=== PATIENT | female | born 1995 | race American Indian/Alaskan Native ===

== ENCOUNTER 2018-02-02 11:05 | Emergency (ER) | payer OTHER ==
[~2018-02-02] VITALS: Ht 157.5 cm; Wt 81.7 kg
[~2018-02-02 11:05] MED LIST: CIPRO500 MG PO
[2018-02-02] MEDS ORDERED: PRILOSEC OTC20 MG PO (12:37)
[2018-02-02] MEDS ORDERED: ZOFRAN ODT4 MG PO (12:37)
[2018-02-02] MEDS ORDERED: CRUTCH1 EACH (12:55)
== END 2018-02-02 13:25 | disposition home or self-care (01) ==
LOC: ED 11:05
DX: S82.891A Other fracture of right lower leg, initial encounter for closed fracture (principal); K29.70 Gastritis, unspecified, without bleeding; F17.200 Nicotine dependence, unspecified, uncomplicated; X50.9XXA Other and unspecified overexertion or strenuous movements or postures, initial encounter
CPT/HCPCS: 73610; 80053; 80176; 83690; 84703; 85025; 96374; 96375; 99284; G0480; J2405; J7030

== ENCOUNTER 2018-11-20 07:45 | Inpatient (IN) | payer OTHER ==
[~2018-11-20] VITALS: Ht 157.5 cm; Wt 93.0 kg
[~2018-11-20 07:45] MED LIST changes: +CRUTCH1 EACH; +PRILOSEC OTC20 MG PO; +ZOFRAN ODT4 MG PO
--- NOTE | 2018-11-20 19:03 | PR ---
[facility] [address] [facility] [place], [place] [address] Signed Progress Notes IP Datetime Report Generated by EMILIANO: 11/20/2018 19:03 PROGRESS NOTES: [id number] Impression: Reactive non-stress test; Slow Progression of Labor Procedures: Intrauterine Pressure Catheter; Sterile Vag Exam Plan: Continue present management Informed Consent Obtain: Vaginal Delivery; Risks, Benefits and Alternatives Discussed VITAL SIGNS: [id number] Vital Signs: Reviewed; Within Normal Limits EXAM: [id number] Dilatation: 4.0 Effacement: 90 Station: -2 Uterine Contractions: q 1 to 3 min MEMBRANES: [id number] Membrane Status: Intact Comments: No progress despite pit augment. Suspect contractions inadequate. Will place IUPC and increase pitocin as needed. Fetus A: [id number] FHR Baseline: 145 Variability: Moderate 6-25bpm Accelerations: 15X15 Decelerations: None FHR Category: Category I Presentation: Vertex Comments on Fetus A: No evidence of metabolic acidosis. Fetus B: [id number] Signing Physician: Bonnie Drew MD Copies: ~ *Electronically Signed* 11/20/18 190 BONNIE DREW MD PATIENT NAME: KAYLA WELLS PROGRESS NOTE DATE OF : 95 PHYSICIAN: BONNIE DREW MD RPT #: [id number] REPORT IS CONFIDENTIAL AND NOT TO BE RELEASED WITHOUT AUTHORIZATION
--- NOTE | 2018-11-22 10:19 | PR ---
[facility] [address] [facility] [place], [place] [address] Signed PP Progress Notes Datetime Report Generated by CPChante: 11/22/2018 10:19 SUBJECTIVE: [id number] Pain: Within normal limits Vital Signs: [id number] Vital Signs: Reviewed; Within Normal Limits EXAM: [id number] Cardiovascular: Not Done Respiratory: Not Done Abdomen/Uterus: Abnormal Lochia: Normal Vulva/Perineum: Not Done Breasts: Not Done CVA Tenderness: Not Done Extremities: Normal Incision: Not Applicable Progress: Normal Exam Comments: Fundus firm, NT @ U H/H 9.3/29.1, WBC 17.3, plat 192k IMPRESSION/PLAN/PROCEDURES: [id number] Impression: Normal progression Plan: Continue present management Progress Notes: Doing well. Will continue current regimen. Signing Physician: Dara Drew MD Copies: ~ *Electronically Signed* 11/22/18 1019 DARA DREW MD PATIENT NAME: KAYLA WELLS PROGRESS NOTE DATE OF : 95 PHYSICIAN: DARA DREW MD RPT #: [id number] REPORT IS CONFIDENTIAL AND NOT TO BE RELEASED WITHOUT AUTHORIZATION
--- NOTE | 2018-11-23 09:23 | PR ---
[facility] [address] [facility] [place], [place] [address] Signed PP Progress Notes Datetime Report Generated by CPN: 11/23/2018 09:22 SUBJECTIVE: [id number] Pain: Within normal limits Vital Signs: [id number] Vital Signs: Reviewed; Within Normal Limits EXAM: [id number] Cardiovascular: Not Done Respiratory: Not Done Abdomen/Uterus: Abnormal Lochia: Normal Vulva/Perineum: Not Done Breasts: Not Done CVA Tenderness: Not Done Extremities: Normal Incision: Not Applicable Progress: Normal Exam Comments: Fundus firm, NT @ U. IMPRESSION/PLAN/PROCEDURES: [id number] Impression: Normal progression Plan: Discharge Procedures: None Progress Notes: Doing well. She is ready for D/C. Signing Physician: Bonnie Drew MD Copies: ~ *Electronically Signed* 11/23/18921 BONNIE DREW MD PATIENT NAME: KAYLA WELLS PROGRESS NOTE DATE OF : 95 PHYSICIAN: BONNIE DREW MD RPT #: [id number] REPORT IS CONFIDENTIAL AND NOT TO BE RELEASED WITHOUT AUTHORIZATION
== END 2018-11-23 13:00 | disposition home or self-care (01) | DRG 807 ==
LOC: FBCO 07:45 → FBC 07:45 → FBCO 07:45 → FBC 08:14 → EDSTATUS 11-21 08:30 → FBC 11-21 15:45
PROVIDERS: ADMIT Obstetrics & Gynecology
PROC: 10907ZC Drainage of Amniotic Fluid, Therapeutic from Products of Conception, Via Natural or Artificial Opening (ICD-10-PCS; 2018-11-20)
PROC: 10H07YZ Insertion of Other Device into Products of Conception, Via Natural or Artificial Opening (ICD-10-PCS; 2018-11-20)
PROC: 00HU33Z Insertion of Infusion Device into Spinal Canal, Percutaneous Approach (ICD-10-PCS; 2018-11-20)
PROC: 3E0R3BZ Introduction of Anesthetic Agent into Spinal Canal, Percutaneous Approach (ICD-10-PCS; 2018-11-20)
PROC: 10E0XZZ Delivery of Products of Conception, External Approach (ICD-10-PCS; principal; 2018-11-21)
PROC: 0UQGXZZ Repair Vagina, External Approach (ICD-10-PCS; 2018-11-21)
PROC: 0UQMXZZ Repair Vulva, External Approach (ICD-10-PCS; 2018-11-21)
DX: O99.824 Streptococcus B carrier state complicating childbirth (principal); Z37.0 Single live birth; Z3A.37 37 weeks gestation of pregnancy; O63.1 Prolonged second stage (of labor); O99.214 Obesity complicating childbirth; E66.9 Obesity, unspecified; O62.2 Other uterine inertia; O71.82 Other specified trauma to perineum and vulva; O71.4 Obstetric high vaginal laceration alone; O99.324 Drug use complicating childbirth; F12.90 Cannabis use, unspecified, uncomplicated; Z87.891 Personal history of nicotine dependence
CPT/HCPCS: 01960; 36415; 59025; 85027; 99213; J2210; J2405; J2540; J2590; J2795; J7060; J7120

== ENCOUNTER 2020-05-02 07:28 | Inpatient (IN) | payer OTHER ==
[~2020-05-02] VITALS: Ht 157.5 cm; Wt 95.0 kg
--- NOTE | 2020-05-02 12:38 | PR ---
[facility] [address] [facility] [place], [place] [address] Signed Progress Notes IP Datetime Report Generated by CPChante: 05/02/2020 12:38 PROGRESS NOTES: [id number] Impression: Slow Progression of Labor Procedures: Artificial ROM; Sterile Vag Exam Plan: Continue present management Informed Consent Obtain: Vaginal Delivery; Risks, Benefits and Alternatives Discussed VITAL SIGNS: [id number] Vital Signs: Reviewed; Within Normal Limits EXAM: [id number] Dilatation: 7.0 Effacement: 95 Station: -2 Uterine Contractions: q 2 to 4 min MEMBRANES: [id number] Membrane Status: Intact ROM Note: AROM with small amount of clear fluid seen Comments: Progressing slowly. Will work on position changes. Fetus A: [id number] FHR Baseline: 135 Variability: Moderate 6-25bpm Accelerations: 15X15 Decelerations: None FHR Category: Category I Presentation: Vertex Comments on Fetus A: No evidence of metabolic acidosis Fetus B: [id number] Signing Physician: Dara Drew MD Copies: ~ *Electronically Signed* 05/02/20 1238 DARA DREW MD PATIENT NAME: KAYLA WELLS ANKIT PROGRESS NOTE DATE OF : 95 PHYSICIAN: DARA DREW MD RPT #: [id number] REPORT IS CONFIDENTIAL AND NOT TO BE RELEASED WITHOUT AUTHORIZATION
--- NOTE | 2020-05-02 15:16 | PR ---
[facility] [address] [facility] [place], [place] [address] Signed Progress Notes IP Datetime Report Generated by CPN: 05/02/2020 15:16 PROGRESS NOTES: [id number] Impression: Normal progression of labor Procedures: Intrauterine Pressure Catheter; Sterile Vag Exam Plan: Continue present management Informed Consent Obtain: Vaginal Delivery; Risks, Benefits and Alternatives Discussed VITAL SIGNS: W2322231 Vital Signs: Reviewed; Within Normal Limits EXAM: [id number] Dilatation: 9.0 Effacement: 95 Station: -2 Uterine Contractions: q 2 to 3 min MEMBRANES: [id number] Membrane Status: Intact ROM Note: AROM with small amount of clear fluid seen Comments: Progressing. Will place IUPC and continue augmentation as needed. Fetus A: [id number] FHR Baseline: 120 Variability: Moderate 6-25bpm Accelerations: 15X15 Decelerations: None FHR Category: Category I Presentation: Vertex Comments on Fetus A: No evidence of metabolic acidosis Fetus B: [id number] Signing Physician: Bonnie Drew MD Copies: ~ *Electronically Signed* 05/02/20 1516 BONNIE DREW MD PATIENT NAME: KAYLA WELLS PROGRESS NOTE DATE OF : 95 PHYSICIAN: BONNIE DREW MD RPT #: [id number] REPORT IS CONFIDENTIAL AND NOT TO BE RELEASED WITHOUT AUTHORIZATION
--- NOTE | 2020-05-02 16:54 | PR ---
[facility] [address] [facility] [place], [place] [address] Signed Progress Notes IP Datetime Report Generated by CPN: 05/02/2020 16:54 PROGRESS NOTES: [id number] Impression: Normal progression of labor Procedures: Sterile Vag Exam Plan: Continue present management Other Plans: begin pushing Informed Consent Obtain: Vaginal Delivery; Risks, Benefits and Alternatives Discussed VITAL SIGNS: [id number] Vital Signs: Reviewed; Within Normal Limits EXAM: [id number] Dilatation: 10.0 Effacement: 100 Station: -1 Uterine Contractions: q 2 to 3 min MEMBRANES: C9504410 Membrane Status: Intact ROM Note: AROM with small amount of clear fluid seen Comments: Now complete. Will begin pushing. Fetus A: [id number] FHR Baseline: 135 Variability: Moderate 6-25bpm Accelerations: 15X15 Decelerations: None FHR Category: Category I Presentation: Vertex Comments on Fetus A: No evidence of metabolic acidosis Fetus B: [id number] Signing Physician: Bonnie Drew MD Copies: ~ *Electronically Signed* 05/02/20 1654 BONNIE DREW MD PATIENT NAME: KAYLA WELLS PROGRESS NOTE DATE OF : 95 PHYSICIAN: BONNIE DREW MD RPT #: [id number] REPORT IS CONFIDENTIAL AND NOT TO BE RELEASED WITHOUT AUTHORIZATION
--- NOTE | 2020-05-03 07:54 | PR ---
[facility] [address] [facility] [place], [place] [address] Signed PP Progress Notes Datetime Report Generated by CPChante: 05/03/2020 07:54 SUBJECTIVE: [id number] Pain: Within normal limits Nausea/Vomiting: Denies Vital Signs: T9227822 Vital Signs: Reviewed; Within Normal Limits EXAM: [id number] Cardiovascular: Not Done Respiratory: Not Done Abdomen/Uterus: Abnormal Lochia: Normal Vulva/Perineum: Not Done Breasts: Not Done CVA Tenderness: Not Done Extremities: Normal Incision: Not Applicable Progress: Normal Exam Comments: Fundus firm, NT @ U-1. H/H 07/17.8, WBC 19.7, plat 236k IMPRESSION/PLAN/PROCEDURES: [id number] Impression: Normal progression Plan: Continue present management Progress Notes: Doing well. Will continue observation. Signing Physician: Dara Drew MD Copies: ~ *Electronically Signed* 05/03/20 0754 DARA DREW MD PATIENT NAME: KAYLA WELLS PROGRESS NOTE DATE OF : 95 PHYSICIAN: DARA DREW MD RPT #: [id number] REPORT IS CONFIDENTIAL AND NOT TO BE RELEASED WITHOUT AUTHORIZATION
--- NOTE | 2020-05-04 08:29 | PR ---
[facility] [address] [facility] [place], [place] [address] Signed PP Progress Notes Datetime Report Generated by EMILIANO: 05/04/2020 08:29 SUBJECTIVE: [id number] Pain: Within normal limits Nausea/Vomiting: Denies Vital Signs: O9087012 Vital Signs: Reviewed; Within Normal Limits EXAM: [id number] Cardiovascular: Not Done Respiratory: Not Done Abdomen/Uterus: Abnormal Lochia: Normal Vulva/Perineum: Not Done Breasts: Not Done CVA Tenderness: Not Done Extremities: Normal Incision: Not Applicable Progress: Normal Exam Comments: Fundus firm, NT @ U-1. IMPRESSION/PLAN/PROCEDURES: [id number] Impression: Normal progression Plan: Discharge Procedures: None Progress Notes: Doing well. She is ready for D/C later today. Signing Physician: Dara Drew MD Copies: ~ *Electronically Signed* 05/04/20828 DARA DREW MD PATIENT NAME: KAYLA WELLS PROGRESS NOTE DATE OF : 95 PHYSICIAN: DARA DREW MD RPT #: [id number] REPORT IS CONFIDENTIAL AND NOT TO BE RELEASED WITHOUT AUTHORIZATION
== END 2020-05-04 18:15 | disposition home or self-care (01) | DRG 807 ==
LOC: FBCO 07:28 → FBC 08:05
PROVIDERS: ADMIT Obstetrics & Gynecology
PROC: 10E0XZZ Delivery of Products of Conception, External Approach (ICD-10-PCS; principal; 2020-05-02)
PROC: 10H07YZ Insertion of Other Device into Products of Conception, Via Natural or Artificial Opening (ICD-10-PCS; 2020-05-02)
PROC: 10907ZC Drainage of Amniotic Fluid, Therapeutic from Products of Conception, Via Natural or Artificial Opening (ICD-10-PCS; 2020-05-02)
PROC: 00HU33Z Insertion of Infusion Device into Spinal Canal, Percutaneous Approach (ICD-10-PCS; 2020-05-02)
PROC: 3E0R3BZ Introduction of Anesthetic Agent into Spinal Canal, Percutaneous Approach (ICD-10-PCS; 2020-05-02)
DX: O99.824 Streptococcus B carrier state complicating childbirth (principal); Z37.0 Single live birth; Z3A.37 37 weeks gestation of pregnancy; O99.214 Obesity complicating childbirth; E66.9 Obesity, unspecified; O99.324 Drug use complicating childbirth; F12.90 Cannabis use, unspecified, uncomplicated; Z87.891 Personal history of nicotine dependence
CPT/HCPCS: 01960; 36415; 85027; A9270; J2210; J2540; J2590; J2795; J3010; J7121

== ENCOUNTER 2020-08-24 16:24 | Emergency (ER) | payer OTHER ==
[~2020-08-24] VITALS: Ht 157.5 cm; Wt 95.3 kg
[~2020-08-24 16:24] MED LIST changes: +KEFLEX500 MG PO
--- OUTSIDE RECORDS SUMMARY | 2020-08-24 16:26 | XMS ---
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 Jeferson has no Care Guidelines for this patient. [place] VISIT COUNT (12 MO.) [address] [facility] TOTAL 2 NOTE: Visits indicate total known visits. ED/[facility] VISIT TRACKING (12 MO.) 08/24/2020 16:25 [facility] OR TYPE: Emergency COMPLAINT: - BUG BITE 08/20/2020 23:10 [facility] TYPE: Emergency COMPLAINT: - FLANK PAIN DIAGNOSES: - Insect bite (nonvenomous) of abdominal wall, initial encounter - Nicotine dependence, unspecified, uncomplicated - Local infection of the skin and subcutaneous tissue, unspecified - Bitten or stung by nonvenomous insect and other nonvenomous arthropods, initial encounter INPATIENT VISIT TRACKING (12 MO.) 05/02/2020 08:05 [facility] TYPE: [facility] COMPLAINT: - LABOR DIAGNOSES: - Obesity complicating childbirth - 37 weeks gestation of - Drug use complicating childbirth - Obesity, unspecified - Single live - Personal history of nicotine dependence - Streptococcus B carrier state complicating - Streptococcus B carrier state complicating childbirth - 37 weeks gestation of - Personal history of nicotine dependence - Streptococcus B carrier state complicating childbirth - Obesity, unspecified - Obesity complicating childbirth - Cannabis use, unspecified, uncomplicated - Single live - Drug use complicating childbirth - Cannabis use, unspecified, uncomplicated [email or web address]
[2020-08-24] MEDS ORDERED: IBUPROFEN600 MG PO (16:43)
[2020-08-24] MEDS ORDERED: CLEOCIN HCL300 MG PO (17:28)
== END 2020-08-24 17:56 | disposition home or self-care (01) ==
LOC: ED 16:24
DX: L02.213 Cutaneous abscess of chest wall (principal); F17.200 Nicotine dependence, unspecified, uncomplicated
CPT/HCPCS: 99283

== ENCOUNTER 2020-12-11 13:40 | Emergency (ER) | payer OTHER ==
[~2020-12-11] VITALS: Ht 157.5 cm; Wt 86.2 kg
[~2020-12-11 13:40] MED LIST changes: +CLEOCIN HCL300 MG PO; +IBUPROFEN600 MG PO
== END 2020-12-11 15:00 | disposition home or self-care (01) ==
LOC: ED 13:40
DX: S93.401A Sprain of unspecified ligament of right ankle, initial encounter (principal); X50.9XXA Other and unspecified overexertion or strenuous movements or postures, initial encounter; F17.200 Nicotine dependence, unspecified, uncomplicated
CPT/HCPCS: 73610; 73630; 99283-25

== ENCOUNTER 2021-04-03 15:37 | Observation (INO) | payer OTHER | END 2021-04-04 12:30 | disposition home or self-care (01) | LOC: FBCO 15:37 → FBC 18:20 | PROVIDERS: ADMIT Obstetrics & Gynecology; ATTEND Obstetrics & Gynecology | DX: O62.8 Other abnormalities of forces of labor (principal); Z3A.35 35 weeks gestation of pregnancy; W19.XXXA Unspecified fall, initial encounter | CPT/HCPCS: 59025; G0378 ==

== ENCOUNTER 2021-04-08 21:38 | Emergency (ER) | payer OTHER ==
[~2021-04-08] VITALS: Ht 157.5 cm; Wt 95.2 kg
[2021-04-08] MEDS ORDERED: CLARITIN-D 241 EACH PO (23:56)
[2021-04-08] MEDS ORDERED: AUGMENTIN 875-1 EACH PO (23:56)
== END 2021-04-09 00:08 | disposition home or self-care (01) ==
LOC: ED 21:38
DX: J01.90 Acute sinusitis, unspecified (principal); Z20.822 Contact with and (suspected) exposure to COVID-19; D64.9 Anemia, unspecified
CPT/HCPCS: 99283; A9270; C9803; U0003

== ENCOUNTER 2021-05-02 08:05 | Inpatient (IN) | payer OTHER ==
[~2021-05-02] VITALS: Ht 157.5 cm; Wt 97.5 kg
[~2021-05-02 08:05] MED LIST changes: +AUGMENTIN 875-1 EACH PO; +CLARITIN-D 241 EACH PO
--- NOTE | 2021-05-02 08:40 | NUR ---
both nares swabbed for covid-19 without complication. sample taken to lab.
--- NOTE | 2021-05-02 13:35 | PR ---
[facility] [address] [place], [place] [address] Signed Progress Notes IP Datetime Report Generated by CPN: 05/02/2021 13:35 PROGRESS NOTES: [id number] Impression: Reassuring Heart Rate Procedures: Sterile Vag Exam Plan: Continue Present Management VITAL SIGNS: G5001508 Vital Signs: Reviewed; Within Normal Limits EXAM: [id number] Dilatation: 5.0 Effacement: 75 Station: -2 Contractions: irreg MEMBRANES: T0459522 Membranes Status: Intact Comments: Getting comfortable after epidural. Little progress and cervix now deviated to patient's left. Will pursue position changes. Made need pit augment as well. FETUS A: [id number] FHR Baseline: 125 Variability: Moderate 6-25bpm Accelerations: 15X15 Decelerations: None FHR Category: Category I Presentation: Vertex Comments on Fetus A: No evidence of metabolic acidosis FETUS B: [id number] Signing Physician: Bonnie Drew MD Copies: ~ *Electronically Signed* 05/02/21 1335 BONNIE DREW MD PATIENT NAME: KAYLA WELLS PROGRESS NOTE DATE OF : 95 PHYSICIAN: BONNIE DREW MD RPT #: [id number] REPORT IS CONFIDENTIAL AND NOT TO BE RELEASED WITHOUT AUTHORIZATION
--- NOTE | 2021-05-02 17:27 | PR ---
[facility] [address] [place], [place] [address] Signed Progress Notes IP Datetime Report Generated by EMILIANO: 05/02/2021 17:27 PROGRESS NOTES: [id number] Impression: Normal Progression of Labor Procedures: Intrauterine Pressure Catheter; Sterile Vag Exam Plan: Continue Present Management VITAL SIGNS: [id number] Vital Signs: Reviewed; Within Normal Limits EXAM: [id number] Dilatation: 7.0 Effacement: 90 Station: -2 Contractions: irreg MEMBRANES: [id number] Membranes Status: Intact Comments: Progressing. 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 Will place IUPC and augment if needed. FETUS A: [id number] FHR Baseline: 125 Variability: Moderate 6-25bpm Accelerations: 15X15 Decelerations: None FHR Category: Category I Presentation: Vertex Comments on Fetus A: No evidence of metabolic acidosis FETUS B: [id number] Signing Physician: Bonnie Drew MD Copies: ~ *Electronically Signed* 05/02/21 1727 BONNIE DREW MD PATIENT NAME: KAYLA WELLS PROGRESS NOTE DATE OF : 95 PHYSICIAN: BONNIE DREW MD RPT #: [id number] REPORT IS CONFIDENTIAL AND NOT TO BE RELEASED WITHOUT AUTHORIZATION
--- NOTE | 2021-05-03 08:50 | PR ---
[facility] [address] [place], [place] [address] Signed PP Progress Notes Datetime Report Generated by EMILIANO: 05/03/2021 08:50 SUBJECTIVE: [id number] Pain: Within Normal Limits Pain Comments: flat affect Vital Signs: [id number] Vital Signs: Reviewed; Within Normal Limits Cardiovascular: Not Done Respiratory: Not Done Abdomen/Uterus: Abnormal Lochia: Normal Vulva/Perineum: Abnormal Breasts: Not Done CVA Tenderness: Not Done Extremities: Normal Incision: Not Applicable Progress: Normal Exam Comments: Fundus firm, NT @ U-2. Vulva with moderate edema H/H 7.5/24.3, WBC 20.5, plat 201k IMPRESSION/PLAN/PROCEDURES: [id number] Other Impression: depression, anemia Other Plans: Zoloft, IV iron Other Procedures: IV iron Progress Notes: Bleeding doing well though perineum still quite edematous. Will hopefully be able to remove catheter later this am. Discussed her depression screen which is abnormal. She denies any prior treatment for depression though she has done counseling in the distant past. She is open to medication for her depression. Anemia--worsened since her pp hemorrhage but not compliant with iron supplementation prior to delivery either. I think IV iron is a reasonable jump start to her anemia. Signing Physician: Bonnie Drew MD Copies: *Electronically Signed* 05/03/21 0850 BONNIE DREW MD PATIENT NAME: KAYLA WELLS PROGRESS NOTE DATE OF : 95 PHYSICIAN: BONNIE DREW MD RPT #: [id number] REPORT IS CONFIDENTIAL AND NOT TO BE RELEASED WITHOUT AUTHORIZATION [address] [address] Signed ~ *Electronically Signed* 05/03/21 0850 BONNIE DREW MD PATIENT NAME: KAYLA WELLS PROGRESS NOTE DATE OF : 95 PHYSICIAN: BONNIE DREW MD RPT #: [id number] REPORT IS CONFIDENTIAL AND NOT TO BE RELEASED WITHOUT AUTHORIZATION
--- NOTE | 2021-05-04 08:50 | PR ---
[facility] [address] [facility] [place], [place] [address] Signed PP Progress Notes Datetime Report Generated by CPN: 05/04/2021 08:50 SUBJECTIVE: [id number] Pain: Within Normal Limits Pain Comments: flat affect Vital Signs: [id number] Vital Signs: Reviewed; Within Normal Limits Cardiovascular: Not Done Respiratory: Not Done Abdomen/Uterus: Abnormal Lochia: Normal Vulva/Perineum: Normal Breasts: Not Done CVA Tenderness: Not Done Extremities: Normal Incision: Not Applicable Progress: Normal Exam Comments: Fundus firm, NT @ U-2. IMPRESSION/PLAN/PROCEDURES: [id number] Impression: Normal Progression Other Impression: Depression Plan: Discharge Other Plans: Zoloft, IV iron Other Procedures: IV iron Progress Notes: Doing well overall. She is ready for D/C. Signing Physician: Bonnie Drew MD Copies: ~ *Electronically Signed* 05/04/21 0850 BONNIE DERW MD PATIENT NAME: KAYLA WELLS PROGRESS NOTE DATE OF : 95 PHYSICIAN: BONNIE DREW MD RPT #: [id number] REPORT IS CONFIDENTIAL AND NOT TO BE RELEASED WITHOUT AUTHORIZATION
== END 2021-05-04 15:25 | disposition home or self-care (01) | DRG 806 ==
LOC: FBC 08:05
PROVIDERS: ADMIT Obstetrics & Gynecology; ATTEND Obstetrics & Gynecology
PROC: 10E0XZZ Delivery of Products of Conception, External Approach (ICD-10-PCS; principal; 2021-05-02)
PROC: 3E0R3BZ Introduction of Anesthetic Agent into Spinal Canal, Percutaneous Approach (ICD-10-PCS; 2021-05-02)
PROC: 00HU33Z Insertion of Infusion Device into Spinal Canal, Percutaneous Approach (ICD-10-PCS; 2021-05-02)
PROC: 10907ZC Drainage of Amniotic Fluid, Therapeutic from Products of Conception, Via Natural or Artificial Opening (ICD-10-PCS; 2021-05-02)
DX: O99.02 Anemia complicating childbirth (principal); O72.1 Other immediate postpartum hemorrhage; Z37.0 Single live birth; O99.344 Other mental disorders complicating childbirth; D64.9 Anemia, unspecified; F32.9 Major depressive disorder, single episode, unspecified; F41.9 Anxiety disorder, unspecified
CPT/HCPCS: 01960; 85027; 85384; A9270; C9803; J1644; J2590; J2795; J3010; J7121; Q0138; U0003

== ENCOUNTER 2021-07-02 12:00 | Observation (INO) | payer OTHER ==
[~2021-07-02] VITALS: Ht 157.5 cm; Wt 94.4 kg
--- NOTE | 2021-07-02 16:45 | NUR ---
REPORT RECEIVED FROM GEORGINA VACA, PT GOING TO SURGERY THIS EVENING, VSS ON RA.
--- NOTE | 2021-07-02 17:15 | NUR ---
PT ARRIVED TO MS FLOOR FROM ED VIA STRETCHER, PT ABLE TO IND TRANSFER FROM STRETCHER TO BED. VSS ON RA. PT CURRENTLY NAUSEOUS AND VOMITING. PT C/O PAIN AND NAUSEA, PRN MEDS GIVEN PER PT REQUEST/PROVIDER ORDER. PT A+O x3, SURGICAL CONSENT SIGNED, PT NPO AND LAP APPY PLANNED FOR 1900 THIS EVENING.
--- NOTE | 2021-07-02 18:00 | NUR ---
PRE SURGICAL WIPE DOWN COMPLETED BY AGUILAR MELVIN, ALL JEWELRY, UPPER PARTIAL DENTURE, AND UNDERWEAR REMOVED, LR W/ STRAIGHT TUBING HUNG AND IV ABX HUNG FOR OR.
--- NOTE | 2021-07-02 18:30 | NUR ---
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
--- NOTE | 2021-07-02 19:00 | NUR ---
REPORT RECEIVED FROM OFFGOING RNJANI. PT IN SURGERY AT THIS TIME.
--- NOTE | 2021-07-02 20:07 | NUR ---
07/02/212006 Aditi Tafoya 2002-PATIENT ARRIVED TO PACU ON [address]L [address] EVEN ORAL AIRWAY IN PLACE. PATIENT NONAROUSABLE. IVF INFUSING SR. 3 LAP SITES TO ABDOMEN CDI WITH STERI STRIPS IN PLACE. SCRATCHES NOTED TO LEFT THIGH.
--- NOTE | 2021-07-02 20:53 | NUR ---
PT ARRIVED TO ROOM 109 FROM PACU, VIA HOSPITAL BED, AND RN FANY. PT MOSTLY SLEEPY ON ARRIVAL, BUT WAKENS TO QUESTIONS. VS COMPLETE, RA @97. 3 LAP SITES COVERED WITH DRESSINGS, C/D/I.
--- NOTE | 2021-07-02 21:10 | NUR ---
OFFERED ICE WATER, AND NIC. ACCEPTED. DENIED NAUSEA, OR NEED FOR PAIN MEDICATION AT THIS TIME.
--- NOTE | 2021-07-02 21:53 | NUR ---
POST OP VS DONE, WNL. CLEAR LIQUIDS PROVIDED. PT DENIES PAIN OR NAUSEA. NO FURTHER NEEDS AT THIS TIME. VISITOR AT BEDSIDE. CALL LIGHT IN REACH.
--- NOTE | 2021-07-02 22:11 | NUR ---
PT ASSESSMENT COMPLETE. PT RESTING IN BED WITH HER MOM SPOON FEEDING HER BROTH AT BEDSIDE. PT REPORTS PAIN, 6-7/10 TO ABD, DESCRIBES THROBBING. PRN ADMINISTERED, SEE EMAR. PT DENIES NAUSEA OR SOB AT THIS TIME. BT'S HYPOACTIVE TO ACTIVE, ABD TENDER TO PALPATION. LAP SITES X3 WITH STERISTRIPS PRESENT. C/D/I. IV FLUSHED, IVF INFUSING ORDERED. PT DENIES FURTHER NEEDS AT THIS TIME. CALL LIGHT IN REACH.
--- NOTE | 2021-07-02 22:37 | NUR ---
POST OP VITALS DONE, WNL. PT REPORTS BEING "TOO HOT". THERMOSTAT TURNED DOWN. EXTRA BLANKETS REMOVED. IV ALARMING. RESOLVED. NO FURTHER NEEDS AT THIS TIME.
--- NOTE | 2021-07-02 23:27 | NUR ---
CALL LIGHT ANSWERED. PT UP TO BR WITH SBA TO VOID 1100 CLEAR YELLOW URINE. GAIT STEADY. BACK TO BED, ASHUTOSH WELL. LAP SITES REINFORCED WITH 2X2 AND TAPE DUE TO SEROSANG DRAINAGE. GOWN CHANGED. PT HUNGRY. DENIES NAUSEA. PUDDING PROVIDED. SANDWICH BOX ORDERED. SCD'S IN PLACE. PT REPORTS ABD PAIN 03/30. PRIMARY RN NOTIFIED.
--- NOTE | 2021-07-02 23:30 | NUR ---
PT REPORTS PAIN NOT IMPROVED AT ALL BY PRNS ADMINISTERED EARLIER. ADDITIONAL PRN ADMINISTERED. PT DENIES FURTHER NEEDS AT THIS TIME. PT'S MOM SLEEPING AT BEDSIDE.
--- NOTE | 2021-07-03 00:25 | NUR ---
SENIOR MORTGAGE LOAN PROCESSOR TO ROOM TO REASSESS PT'S PAIN. PT SITTING IN BED EATING CHIPS. STATES THAT IT STILL FEELS LIKE SOMETHING IS "PUSHING" ON HER STOMACH. RATES PAIN 4/10. EDUCATION PROVIDED ON KEEPING PAIN AT A TOLERABLE LEVEL. PT STATES PAIN IS TOLERABLE AT THIS TIME. DENIES FURTHER NEEDS. CALL LIGHTIN DICKSON.
--- NOTE | 2021-07-03 02:21 | NUR ---
PT ASSESSMENT COMPLETE. PT RATES PAIN 3-4/10, STATES THAT IT IS IMPROVED. DENIES NAUSEA OR SOB. LAP SITES X 3 ON ABD, NO NEW DRAINAGE NOTED. BT'S HYPOACTIVE. ABD MILDLY DISTENDED, TENDERNESS NOTED UPON PALPATION. IVF INFUSING ORDERED. IV FLUSHED, WNL. PT UP TO BATHROOM AND BACK TO BED WITH SBA. TOLERATED WELL. PT'S MOM RESTING ON COUCH. ICE WATER REFILLED. PT DENIES FURTHER NEEDS. CALL LIGHTIN REACH.
--- NOTE | 2021-07-03 06:28 | NUR ---
VS AND I&O COMPETED. PT STATES ABD PAIN IS 5/10, ICE PACK PROVIDED. NO OTHER NEEDS. CALL LIGHT IN REACH.
--- NOTE | 2021-07-03 07:00 | NUR ---
REPORT RECEIVED FROM GEORGINA ARTIS. PT AWAKE AND SITTING UP IN BED. ASKED FOR A TYLENOL.
--- NOTE | 2021-07-03 08:42 | NUR ---
ADMINISTERED TYLENOL AND SCHEDULED MED. WAITING FOR PHARM TO BRING AB. PT ATE BREAKFAST AND HAS NO CONCERNS. DRESSINGS HAVE SMALL AMT DRY DRAINAGE ON GAUZE.
--- NOTE | 2021-07-03 09:10 | NUR ---
PATIENT WAS BUSY WITH STAFF. WILL CHECK BACK LATER.
--- NOTE | 2021-07-03 09:28 | NUR ---
PATIENT IN BED RESTING WTIH EYES CLOSED. VITALS AND I&O'S CHARTED. CALL LIGHT IN REACH. NO FURTHER NEEDS AT THIS TIME.
--- NOTE | 2021-07-03 10:02 | NUR ---
PT appeared to be sleeping. Said quiet prayer and did not disturb or attempt to waken.
--- NOTE | 2021-07-03 10:02 | NUR ---
JAYASHREE HOPKINS IN ROOM TO SEE PT. PT DENIES CONCERNS. STATES HER PAIN IS CONSISTANT BUT BETTER THAN YESTERDAY.
--- NOTE | 2021-07-03 11:21 | NUR ---
PT UP IN RESTROOM INDEPENDENTLY. DENIES CONCERNS.
--- NOTE | 2021-07-03 11:47 | NUR ---
PT UP WALKING IN BAIRD. DISCONNECTED FROM IVF FOR WALK. APPEARS TO BE TOLERATING WELL.
--- NOTE | 2021-07-03 11:50 | NUR ---
PATIENT AMBULATED IN HALLWAY, 1 LAP AROUND NURSES STATION, SBA. PATIENT NOW BACK IN BED. CALL LIGHT IN REACH. NO FURTHER NEEDS AT THIS TIME.
[2021-07-03] MEDS ORDERED: ACETAMINOPHEN500 MG PO (15:30)
[2021-07-03] MEDS ORDERED: IBUPROFEN600 MG PO (15:30)
[2021-07-03] MEDS ORDERED: OXYCODON-ACETA1 EAC2 PO (15:30)
--- NOTE | 2021-07-03 16:04 | NUR ---
ADMINISTERED PRN PERCO FOR 6\10 PAIN.
--- NOTE | 2021-07-04 10:37 | HP ---
[facility] [address], [place] [address] Signed ADMISSION DATE: 07/02/2021 TIME: 4:10 p.m. REASON FOR ADMISSION: Appendicitis. HISTORY: This somewhat obese 25-year-old white woman has three children, the last two months ago. She began having right lower abdominal pain without antecedent central abdominal pain earlier in the day. The pain progressed significantly enough that she presented to the emergency room where she was evaluated by Dr. Gramajo. Given her recent history of delivery, an ultrasound of the abdomen was performed approximately 2:00 p.m. as there was some history of right upper abdominal pain as well. Findings showed the gallbladder to be slightly tense, but not hydropic and there were no stones or sludge and the gallbladder wall was not thickened and there was a negative Wallis sign. There was no evidence of ascites. A CT scan was then performed at approximately 3:00 p.m., which showed findings highly consistent with acute appendicitis including a thickened appendiceal wall, which was dilated and surrounded by fat stranding. There was no sign of abscess or free fluid. Pelvic organs were normal as was the bladder. Her white count was noted to be 18.4, hematocrit 37.7 with normal platelets of 287,000, and chemistry profile also considered normal. Lipase was 8. COVID serology is pending. Urinalysis is normal. Beta-hCG is negative (urine test). PAST MEDICAL HISTORY: Dominantly notable for childbirth x3. She did not require . She denies other chronic medical problems. ALLERGIES: She has no known drug allergies. SOCIAL HISTORY: The patient does not smoke cigarettes. Does use marijuana on occasion and drinks alcohol twice a week. PAST SURGICAL HISTORY: She has not had surgery in the past. REVIEW OF SYSTEMS: Electronically Signed By: FEMI HOPKINS MD 07/04/21 [facility] PATIENT NAME: KAYLA WELLS HISTORY AND PHYSICAL DATE OF : [birth year] REPORT #: [id number] PHYSICIAN: FEMI HOPKINS MD PCP: LINDA BOATENG MD REPORT IS CONFIDENTIAL AND NOT TO BE RELEASED WITHOUT AUTHORIZATION [facility] [address], [place] [address] Signed Her pain is dominantly in the right lower abdomen. She has no complaints of shortness of breath or chest pain. Denies dysuria or hematuria or blood per rectum. PHYSICAL EXAMINATION: GENERAL: Somewhat obese [place] woman. VITAL SIGNS: Temperature is 99.5, pulse 127, now 103, and blood pressure 130/92. HEENT: Mucous membranes are slightly dry. She has a mild eruption of the oral area. Trachea is midline. CHEST: Clear without tachypnea. HEART: Regular. ABDOMEN: Obese, but soft. Rovsing sign is negative. There is tenderness in McBurney's point. EXTREMITIES: Show no clubbing, cyanosis, or edema. LABORATORY STUDIES: As described. Most dominantly, white count of 18.4. I reviewed the CT scan and ultrasound images and reports. I explained to the patient the pathologic findings are consistent with acute appendicitis. Discussed the pathophysiology of this problem and recommendation of treatment to include appendectomy. I discussed with her the risks of bleeding, infection, and need for other indicated procedures and of course failure to cure the problem. Also explained occasional need for open procedure instead of a laparoscopic colon, which would be intended. She understands all this and wished to proceed. For now, additional fluid resuscitation, IV antibiotic cefoxitin, Pepcid IV, and assessment of her COVID test. Of special note, it is unclear if she has ever had COVID, though her boyfriend who lives with her did have COVID approximately two weeks ago. She does not have manifestations of COVID from a pulmonary standpoint that I can tell, but the testing will be necessary obviously. Femi Hopkins MD JM/MODL Electronically Signed By: FEMI HOPKINS MD 07/04/21 1037 PATIENT NAME: KAYLA WELLS HISTORY AND PHYSICAL DATE OF : [birth year] REPORT #: [id number] PHYSICIAN: FEMI HOPKINS MD PCP: LINDA BOATENG MD REPORT IS CONFIDENTIAL AND NOT TO BE RELEASED WITHOUT AUTHORIZATION [address] [address] Signed /[id number] cc: MD Linda Al MD Copies: CAROLYN GRAMAJO MD, JAMES MD ~ Electronically Signed By: FEMI HOPKINS MD 07/04/21 1037 PATIENT NAME: KAYLA WELLS HISTORY AND PHYSICAL DATE OF : [birth year] REPORT #: [id number] PHYSICIAN: FEMI HOPKINS MD PCP: LINDA BOATENG MD REPORT IS CONFIDENTIAL AND NOT TO BE RELEASED WITHOUT AUTHORIZATION
--- NOTE | 2021-07-04 10:37 | OR ---
[facility] [address], [place] [address] Signed DATE OF OPERATION: 07/02/2021 SURGEON: Femi Hopkins MD PREOPERATIVE DIAGNOSIS: Acute appendicitis. POSTOPERATIVE DIAGNOSIS: Acute appendicitis. PROCEDURE: Laparoscopic appendectomy. ANESTHESIA: General endotracheal, Placido Robert, [employer] and local 10 mL of 0.25% Marcaine with epinephrine. INDICATION: This 25-year-old woman is approximately two months from her 3rd child and this morning developed right lower abdominal pain which was progressive. She presented to the emergency room, was evaluated by Dr. Patel and subsequently Dr. Chris Gaspar. She is found to have an elevated white count of 13.[address] scan of the abdomen following an ultrasound showing a normal gallbladder, did show findings completely consistent with acute appendicitis. There is no sign of abscess. Her beta-hCG is negative. COVID test is negative as well. She has been fluid resuscitated, given intravenous antibiotics and is now to undergo appendectomy preferably by a laparoscopic approach. The risk of bleeding, infection, need for open procedure and other unforeseen complications were reviewed in detail. She understands and wished to proceed. FINDINGS: Indeed she did have acute suppurative appendicitis. Appendix was not perforated and there was no abscess. The appendix was densely tethered to the retroperitoneal fatty structures which allowed for dissection that was more lengthy than usual but accomplished safely. Complete appendectomy has been accomplished. The liver had mild fatty infiltration. The gallbladder was not clinically visible. DESCRIPTION OF PROCEDURE: The patient was brought to the operating room, given a general endotracheal anesthetic. Preoperative antibiotic ceftriaxone had been given via the emergency room. Pepcid had Electronically Signed By: FEMI HOPKINS MD 07/04/21 [facility] PATIENT NAME: KAYLA WELLS OPERATIVE REPORT DATE OF : [birth year] REPORT #: [id number] PHYSICIAN: FEMI HOPKINS MD PCP: LINDA DIALLO MD REPORT IS CONFIDENTIAL AND NOT TO BE RELEASED WITHOUT AUTHORIZATION [facility] [address], [place] [address] Signed been given and sequential compression device stockings were used and heparin subcutaneously administered. After satisfactory general endotracheal anesthesia, the abdomen was prepared with a chlorhexidine solution and draped sterilely. An infraumbilical incision was made and using an open Carlos cannula technique pneumoperitoneum was achieved to a level of 14 mmHg with carbon dioxide gas. Intra-abdominal inspection showed no sign of ascites or carcinomatosis, but there was a thin rim of purulent fluid in the right paracolic space. A 12 mm epigastric port was placed and the camera was placed to that site. With single hand manipulation, the cecum could be unfurled and the appendix was densely tethered and directed posteriorly. A right lower quadrant 5 mm port was placed and using two-hand manipulation, appendix was freed from the retroperitoneum with blunt electrocautery dissection. Meticulous care was taken to free it from the retroperitoneal fatty tissue, but once it was freed, a window was created between the appendix and mesoappendix and an Endo-BESSY stapling device was used to transect the base of the appendix, flushed with the cecum. The mesoappendix was dissected free further and three loads of vascular Endo-BESSY stapling device was used to transect the mesoappendix. The mesoappendix was placed in the endobag and extracted through the infraumbilical port site and photographs were taken. Irrigation was undertaken. A small amount of electrocautery applied to the staple lines. Excess irrigation was suctioned free. The trocars were removed under direct visualization showing no sign of bleeding. Infraumbilical fascial incision was reapproximated with interrupted 0 Vicryl suture. A 10 mL of 0.25% Marcaine with epinephrine was injected locally. The skin was closed with interrupted 3-0 Vicryl. Steri-Strips were applied. The patient tolerated the procedure well, was extubated without problem, taken to the recovery room in good condition. MD MANASA Randall/MODL /[id number] cc: Dr. Amanda Diallo MD Electronically Signed By: FEMI HOPKINS MD 07/04/21 1037 PATIENT NAME: KAYLA WELLS OPERATIVE REPORT DATE OF : [birth year] REPORT #: [id number] PHYSICIAN: FEMI HOPKINS MD PCP: LINDA DIALLO MD REPORT IS CONFIDENTIAL AND NOT TO BE RELEASED WITHOUT AUTHORIZATION [address] [address] Signed Copies: LINDA DIALLO MD ~ Electronically Signed By: FEMI HOPKINS MD 07/04/21 1037 PATIENT NAME: KAYLA WELLS OPERATIVE REPORT DATE OF : [birth year] REPORT #: [id number] PHYSICIAN: FEMI HOKPINS MD PCP: LINDA DIALLO MD REPORT IS CONFIDENTIAL AND NOT TO BE RELEASED WITHOUT AUTHORIZATION
== END 2021-07-03 16:35 | disposition home or self-care (01) ==
LOC: ED 12:00 → MS 12:02
PROVIDERS: ADMIT Surgery; ATTEND Surgery
PROC: 0DTJ4ZZ Resection of Appendix, Percutaneous Endoscopic Approach (ICD-10-PCS; principal; 2021-07-02 18:11)
DX: K35.80 Unspecified acute appendicitis (principal); K76.0 Fatty (change of) liver, not elsewhere classified; E66.9 Obesity, unspecified; Z20.822 Contact with and (suspected) exposure to COVID-19
CPT/HCPCS: 00840; 74177; 76705; 80053; 81001; 83690; 84703; 85007; 85025; 93005; 93010; A9270; C9803; J0694; J1100; J1170; J1644; J1885; J2001; J2270; J2405; J2704; J3010; J7030; J7121; U0003

== ENCOUNTER 2023-09-24 08:58 | Emergency (ER) | payer OTHER ==
[~2023-09-24] VITALS: Ht 157.5 cm; Wt 67.5 kg
[~2023-09-24 08:58] MED LIST changes: +ACETAMINOPHEN500 MG PO; +NAPROSYN500 MG PO; +OXYCODON-ACETA1 EAC2 PO
[2023-09-24] MEDS ORDERED: DOXYCYCLINE HY100 MG PO (10:03)
[2023-09-24] MEDS ORDERED: CENTANY30 GM TOP (10:03)
[2023-09-24 10:07] VITALS: BP 121/86
[2023-09-24] MEDS ORDERED: VISTARIL25 MG PO (16:31)
== END 2023-09-24 10:08 | disposition home or self-care (01) ==
LOC: ED 08:58
DX: L73.1 Pseudofolliculitis barbae (principal); L08.89 Other specified local infections of the skin and subcutaneous tissue; B95.8 Unspecified staphylococcus as the cause of diseases classified elsewhere
CPT/HCPCS: 99282

== ENCOUNTER 2023-09-24 16:04 | Emergency (ER) | payer OTHER ==
[~2023-09-24] VITALS: Ht 157.5 cm; Wt 67.5 kg
[~2023-09-24 16:04] MED LIST changes: +CENTANY30 GM TOP; +DOXYCYCLINE HY100 MG PO
--- OUTSIDE RECORDS SUMMARY | 2023-09-24 16:12 | XMS ---
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 Care History Medical/Surgical 08/25/2020 [facility] - PATIENT IS SARA ELIGIBLE, \T\middot;\T\nbsp; PLEASE REFER PATIENT TO [facility] FOR NON EMERGENT MEDICAL NEEDS. \T\middot;\T\nbsp; [facility] CAN SEE PATIENTS SAME DAY FOR APTS IF PATIENT CALLS FIRST THING IN THE MORNING. E.D. VISIT COUNT (12 MO.) 3 [facility] TOTAL 3 NOTE: Visits indicate total known visits. ED/UCC VISIT TRACKING (12 MO.) 09/24/2023 16:04 [facility] [place] TYPE: Emergency COMPLAINT: - SKIN PROBLEM 09/24/2023 08:59 [facility] [place] TYPE: Emergency COMPLAINT: - INSECT BITE, L SIDE NECK 06/01/2023 05:36 [facility] [place] TYPE: Emergency COMPLAINT: - L ARM PAIN DIAGNOSES: - Lateral epicondylitis, left elbow - Pain in left forearm INPATIENT VISIT TRACKING (12 MO.) No inpatient visits to display in this time frame [email or web address]
[2023-09-24] MEDS ORDERED: VISTARIL25 MG PO (16:31)
[2023-09-24 16:40] LABS: BILIRUBIN, URINE NEGATIVE (negative); BLOOD/HGB, URINE NEGATIVE (Negative); KETONE, URINE NEGATIVE (Negative); LEUK ESTERASE, URINE MODERATE (negative); NITRITE, URINE NEGATIVE (negative)
[2023-09-24 16:53] VITALS: BP 135/103
[2023-09-24 16:54] LABS: AMPHETAMINES, UR POSITIVE (NEGATIVE); BARBITURATES, UR NEGATIVE (NEGATIVE); BENZODIAZEPINES, UR NEGATIVE (NEGATIVE); BUPRENORPHINE,UR NEGATIVE (NEGATIVE); COCAINE, UR NEGATIVE (NEGATIVE); MARIJUANA (THC), UR NEGATIVE (NEGATIVE); MDMA, UR NEGATIVE (NEGATIVE); METHADONE, UR NEGATIVE (NEGATIVE); METHAMPHETAMINE, UR POSITIVE (NEGATIVE); OPIATES, UR NEGATIVE (NEGATIVE); OXYCODONE, UR NEGATIVE (NEGATIVE); PHENCYCLIDINE, UR NEGATIVE (NEGATIVE); TRICYCLIC ANTIDEPRESSANT, UR NEGATIVE (NEGATIVE)
[2023-09-24 16:59] LABS: EPITHELIAL CELLS, URINE SQUAMOUS 1+ /lpf (0-1+); RED BLOOD CELLS, URINE 0-1 /hpf (0-5)
[2023-09-24 17:00] LABS: BACTERIA, URINE RARE /hpf (negative); CASTS, URINE NONE SEEN \\lpf; CRYSTALS, URINE NONE SEEN (0-1+); REFLEX CULTURE, URINE Yes (No)
[2023-09-24 17:01] LABS: COLLECTION TYPE, URINE CLEAN CATCH
== END 2023-09-24 16:54 | disposition home or self-care (01) ==
LOC: ED 16:04
PROVIDERS: Emergency Medicine
DX: F15.929 Other stimulant use, unspecified with intoxication, unspecified (principal); R06.4 Hyperventilation; A49.02 Methicillin resistant Staphylococcus aureus infection, unspecified site
CPT/HCPCS: 80307; 81001

== ENCOUNTER 2023-09-29 03:21 | Emergency (ER) | payer OTHER ==
[~2023-09-29] VITALS: Ht 157.5 cm; Wt 67.5 kg
[~2023-09-29 03:21] MED LIST changes: +VISTARIL25 MG PO
--- OUTSIDE RECORDS SUMMARY | 2023-09-29 03:25 | XMS ---
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 PHONE: [phone] Jeferson has no Care Guidelines for this patient. Care History Medical/Surgical 08/25/2020 [facility] - PATIENT IS SARA ELIGIBLE, \T\middot;\T\nbsp; PLEASE REFER PATIENT TO [facility] FOR NON EMERGENT MEDICAL NEEDS. \T\middot;\T\nbsp; [facility] CAN SEE PATIENTS SAME DAY FOR APTS IF PATIENT CALLS FIRST THING IN THE MORNING. E.D. VISIT COUNT (12 MO.) 4 [facility] TOTAL 4 NOTE: Visits indicate total known visits. ED/UCC VISIT TRACKING (12 MO.) 09/29/2023 03:22 [facility] TYPE: Emergency COMPLAINT: - SKIN PROBLEM 09/24/2023 16:04 [facility] TYPE: Emergency COMPLAINT: - SKIN PROBLEM DIAGNOSES: - Hyperventilation - Methicillin resistant Staphylococcus aureus infection, unspecified site - Other stimulant use, unspecified with intoxication, unspecified - Paresthesia of skin 09/24/2023 08:59 [facility] [place] TYPE: Emergency COMPLAINT: - INSECT BITE, L SIDE NECK 06/01/2023 05:36 [facility] [place] TYPE: Emergency COMPLAINT: - L ARM PAIN DIAGNOSES: - Lateral epicondylitis, left elbow - Pain in left forearm INPATIENT VISIT TRACKING (12 MO.) No inpatient visits to display in this time frame [email or web address]
[2023-09-29 03:51] VITALS: BP 133/94
== END 2023-09-29 03:53 | disposition home or self-care (01) ==
LOC: ED 03:21
DX: F41.9 Anxiety disorder, unspecified (principal); F10.129 Alcohol abuse with intoxication, unspecified; Z79.899 Other long term (current) drug therapy
CPT/HCPCS: 99283

== ENCOUNTER 2024-10-22 19:31 | Emergency (ER) | payer OTHER ==
[~2024-10-22] VITALS: Ht 157.5 cm; Wt 64.9 kg
[~2024-10-22 19:31] MED LIST changes: +NARCAN4 MG NAS; +NEXPLANON68 MG SUB-Q
[2024-10-22 20:42] LABS: BASOPHILS 0.5 % (0-2); EOSINOPHILS 0.7 % (0-6); HEMATOCRIT 41.1 % (35.0-50.0); HEMOGLOBIN 13.8 g/dL (12.0-18.0); LYMPHOCYTES 13.2 % (24-44); MCHC 33.7 g/dl (30-36); MCV 97.8 fl (81-99); MONOCYTES 5.4 % (0-12); NEUTROPHILS 80.2 % (39-80); PLATELET COUNT 203 K/uL (140-440); RDW 13.3 (10.5-15.0)
[2024-10-22 20:51] LABS: ALBUMIN 3.1 g/dL (3.4-5.0); ALBUMIN/GLOBULIN RATIO 0.72 (1.1-2.4); ANION GAP 11.3 (7-21); BILIRUBIN, TOTAL 0.2 ng/dL (0.2-1.0); BUN/CREATININE RATIO 9.25 (6.0-28.6); CALCIUM 8.2 mg/dL (8.5-10.1); CREATININE, SERUM 0.54 mg/dL (0.55-1.02); POTASSIUM 3.3 mmol/L (3.5-5.1); PROTEIN, TOTAL 7.4 g/dL (6.4-8.2)
[2024-10-22] MEDS ORDERED: NALOXONE 4 MG NASAL SPRAY #2 HOME.PACK NAS ONE (22:00)
[2024-10-22 22:08] VITALS: BP 108/81
== END 2024-10-22 22:08 | disposition home or self-care (01) ==
LOC: ED 19:31
PROVIDERS: Emergency Medicine
DX: T40.411A Poisoning by fentanyl or fentanyl analogs, accidental (unintentional), initial encounter (principal); R40.4 Transient alteration of awareness; Z79.899 Other long term (current) drug therapy
CPT/HCPCS: 36415; 80053; 80307; 84703; 85025; 99284; J3490

== ENCOUNTER 2025-02-08 13:50 | Emergency (ER) | payer OTHER ==
[~2025-02-08] VITALS: Ht 157.5 cm; Wt 63.6 kg
[2025-02-08] MEDS ORDERED: NALOXONE 4 MG NASAL SPRAY #2 HOME.PACK NAS ONE (15:15)
[2025-02-08] MEDS ORDERED: ACETAMINOPHEN 500 MG TAB PO ONE (15:30)
[2025-02-08 15:39] VITALS: BP 118/86
--- NOTE | 2025-02-08 19:13 | EKG ---
[facility] [address] [facility] [place], [place] [address] Signed Sinus tachycardia Otherwise normal ECG When compared with ECG of 08-FEB-2024 17:20, No significant change was found Confirmed by Braden Wang MD ([id number]) on 02/08/2025 7:13:35 PM Electronically Signed By: BRADEN WANG MD 02/08/251912 PATIENT NAME: KAYLA WELLS Electrocardiogram DATE OF : [birth year] PHYSICIAN: BRADEN WANG MD REPORT #: [id number] REPORT IS CONFIDENTIAL AND NOT TO BE RELEASED WITHOUT AUTHORIZATION
== END 2025-02-08 15:39 | disposition home or self-care (01) ==
LOC: ED 13:50
DX: T40.411A Poisoning by fentanyl or fentanyl analogs, accidental (unintentional), initial encounter (principal); R51.9 Headache, unspecified
CPT/HCPCS: 93005; 93010; 99284; A9270; J3490

== ENCOUNTER 2025-04-05 20:27 | Emergency (ER) | payer OTHER ==
[~2025-04-05] VITALS: Ht 157.5 cm; Wt 63.6 kg
[2025-04-05] MEDS ORDERED: DIPHTH,PERTUSS(ACELL),TET VAC 0.5 ML SYRINGE IM ONE (20:45)
[2025-04-05 21:27] VITALS: BP 166/92
== END 2025-04-05 21:29 | disposition home or self-care (01) ==
LOC: ED 20:27
DX: S61.211A Laceration without foreign body of left index finger without damage to nail, initial encounter (principal); W26.0XXA Contact with knife, initial encounter; Z23 Encounter for immunization; Z79.899 Other long term (current) drug therapy
CPT/HCPCS: 12002; 90471; 90715; 99282-25